=== PATIENT | male | born 1990 ===

== ENCOUNTER 2017-10-30 18:58 | Emergency (ER) | payer OTHER ==
[2017-10-30 19:18] VITALS: BP 128/63
--- NOTE | 2017-10-30 21:15 | RAD ---
Indication: Chest pain, shortness of breath. 2 views of the chest including dual energy PA views demonstrate no mediastinal shift. Heart is of normal size and configuration. Lung martinez appear clear. IMPRESSION: No active cardiopulmonary disease is noted.
--- NOTE | 2017-11-29 10:48 | UC ---
Shortness of Breath HPI - HPI Summary HPI Summary: Patient urgent care with chief complaint of right-sided chest pain hurts to cough, turn onto his right side, laugh, talk and move - History of Current Complaint Chief Complaint: UCRespiratory Stated Complaint: TROUBLE BREATHING Time Seen by Provider: 10/30/17 20:06 Hx Obtained From: Patient Onset/Duration: Sudden Onset Timing: Constant Current Severity: Mild Associated Signs & Symptoms: Positive: Chest Pain w/Cough, Chest Pain Unrelated to Cough - Allergy/Home Medications Allergies/Adverse Reactions: Allergies Allergy/AdvReac Type Severity Reaction Status Date / Time No Known Allergies Allergy Verified 10/30/17 22:21 PMH/Surg Hx/FS Hx/Imm Hx Previously Healthy: Yes - Surgical History Surgical History: Yes Surgery Procedure, Year, and Place: tonsils removed when child - Family History Known Family History: Positive: Blood Disorder - Social History Occupation: Student Lives: With Family Alcohol Use: Occasionally Substance Use Type: None Smoking Status (MU): Former Smoker Review of Systems Constitutional: Negative Skin: Negative Eyes: Negative ENT: Negative Respiratory: Shortness Of Breath, Cough Cardiovascular: Negative Gastrointestinal: Negative Genitourinary: Negative Motor: Negative Neurovascular: Negative Musculoskeletal: Negative Neurological: Negative Psychological: Negative Is Patient Immunocompromised?: No All Other Systems Reviewed And Are Negative: Yes Physical Exam Triage Information Reviewed: Yes Appearance: Well-Appearing, No Pain Distress, Well-Nourished Vital Signs: Initial Vital Signs Temp 98.9 F 10/30/17 19:10 Pulse 84 10/30/17 19:10 Resp 18 10/30/17 19:10 BP 128/63 10/30/17 19:10 Pulse Ox 98 10/30/17 19:10 Vital Signs Reviewed: Yes Eye Exam: Normal Eyes: Positive: Conjunctiva Clear ENT Exam: Normal ENT: Positive: Normal ENT inspection, Hearing grossly normal, Pharynx normal, Nasal congestion. Negative: Trismus, Muffled voice, Hoarse voice Dental Exam: Normal Neck exam: Normal Neck: Positive: Supple, Nontender, No Lymphadenopathy Respiratory Exam: Normal Respiratory: Positive: Chest non-tender, No respiratory distress, No accessory muscle use Cardiovascular Exam: Normal Cardiovascular: Positive: RRR, Pulses Normal, Brisk Capillary Refill Musculoskeletal Exam: Normal Musculoskeletal: Positive: Strength Intact, ROM Intact, No Edema Neurological Exam: Normal Neurological: Positive: Alert, Muscle Tone Normal Psychological Exam: Normal Skin Exam: Normal Shortness of Breath Dx - Course Course Of Treatment: Patient will be discharged from the urgent care to go to the hospital for further evaluation of chest pain and shortness of breath - Differential Dx/Diagnosis Provider Diagnoses: dyspnea Discharge - Sign-Out/Discharge Documenting (check all that apply): Discharge/Admit/Transfer - Discharge Plan Condition: Stable Disposition: HOME Discharge Disposition Comment: to [facility] for further evaluation Patient Education Materials: Dyspnea (ED) Referrals: Chon Woodward MD [Primary Care Provider] - Additional Instructions: We are discharging you to go to the emergency department for further evaluation of you pleurtic pain and SOB - Billing Disposition and Condition Condition: STABLE Disposition: Home
== END 2017-10-30 21:30 | disposition home or self-care (01) ==
LOC: UCEAST 18:58
DX: R06.00 Dyspnea, unspecified (principal); R07.89 Other chest pain; R05 Cough; Z83.2 Family history of diseases of the blood and blood-forming organs and certain disorders involving the immune mechanism; Z87.891 Personal history of nicotine dependence
CPT/HCPCS: 71046; 99202; G0463

== ENCOUNTER 2017-10-30 22:12 | Emergency (ER) | payer OTHER ==
[2017-10-30] MEDS ORDERED: Ibuprofen TAB* 800 MG PO ONE ×2 (22:31→22:34)
[2017-10-30 22:54] LABS: ABS Basophils 0.1 10^3/ul (0-0.2); ABS Eosinophils 0.5 10^3/ul (0-0.6); ABS Lymphocytes 3.1 10^3/ul (1.0-4.8); ABS Monocytes 0.8 10^3/ul (0-0.8); ABS Nucleated RBC 0 10^3/ul; Eosinophil % 4.5 % (0-6); Hematocrit 39 % (42-52); Hemoglobin 13.7 g/dl (14.0-18.0); Lymphocyte % 26.7 % (25-47); Mean Corpuscular HGB Conc 36 g/dl (31-36); Mean Corpuscular Hemoglobin 31 pg (27-31); Mean Corpuscular Volume 87 fL (80-94); Mean Platelet Volume 9.2 um3 (7.4-10.4); Nucleated Red Blood Cells % 0.2; Platelet Count 188 10^3/ul (150-450); Red Blood Count 4.45 10^6/ul (4.0-5.4); Red Cell Distribution Width 12 % (10.5-15); White Blood Count 11.6 10^3/ul (3.5-10.8)
[2017-10-30 23:11] LABS: EGFR Non-African American 95.1 (>60)
[2017-10-31 00:17] VITALS: BP 141/78
--- NOTE | 2017-10-31 00:22 | ED ---
Lucia James Jade, scribed for Rodrigue Kan MD on 10/30/17 at 2315 . HPI Chest Pain - HPI Summary HPI Summary: Pt is a 26 y/o male who presents to the ED referred by [facility] c/o right-sided CP. Pain began last night in the middle of the night, waking him up from sleep. He states the pain is on his right lateral side and radiates to his right shoulder, and is described as 6/10 in severity on triage. Pt states that lying down and breathing makes the pain worse. He also c/o SOB. He denies recent exercise. - History of Current Complaint Chief Complaint: EDChestWallPain Time Seen by Provider: 10/30/17 22:23 Hx Obtained From: Patient Onset/Duration: Started Days Ago - Last night, Still Present Timing: Constant Current Severity: Moderate Pain Intensity: 7 Pain Scale Used: 0-10 Numeric Chest Pain Location: Right Lateral Chest Pain Radiates: Yes Chest Pain Radiates To:: Shoulder - Right Aggravating Factor(s): Position - Lying down, Deep Breaths Alleviating Factor(s): Nothing Associated Signs and Symptoms: Positive: Shortness of Breath - Allergy/Home Medications Allergies/Adverse Reactions: Allergies Allergy/AdvReac Type Severity Reaction Status Date / Time No Known Allergies Allergy Verified 10/30/17 22:21 PMH/Surg Hx/FS Hx/Imm Hx Cardiovascular History: Denies: Hx Coronary Artery Disease, Hx Hypertension Respiratory History: Denies: Hx Asthma - Surgical History Surgery Procedure, Year, and Place: tonsils removed when child Infectious Disease History: No Infectious Disease History: Denies: Traveled Outside the [place] in Last 30 Days - Family History Known Family History: Negative: Cardiac Disease, Diabetes - Social History Alcohol Use: Rare Substance Use Type: Reports: None Smoking Status (MU): Former Smoker Review of Systems Positive: Chest Pain Positive: Shortness Of Breath All Other Systems Reviewed And Are Negative: Yes Physical Exam - Summary Physical Exam Summary: VITAL SIGNS: Reviewed. GENERAL: ~Patient is a well-developed and nourished male who is lying comfortable in the stretcher. Patient is not in any acute respiratory distress. HEAD AND FACE: No signs of trauma. No ecchymosis, hematomas or skull depressions. No sinus tenderness. EYES: PERRLA, EOMI x 2, No injected conjunctiva, no nystagmus. EARS: Hearing grossly intact. Ear canals and tympanic membranes are within normal limits. MOUTH: Oropharynx within normal limits. NECK: Supple, trachea is midline, no adenopathy, no JVD, no carotid bruit, no c- spine tenderness, neck with full ROM. CHEST: Symmetric, no tenderness at palpation LUNGS: Clear to auscultation bilaterally. No wheezing or crackles. CVS: Regular rate and rhythm, S1 and S2 present, no murmurs or gallops appreciated. ABDOMEN: Soft, non-tender. No signs of distention. No rebound no guarding, and no masses palpated. Bowel sounds are normal. EXTREMITIES: FROM in all major joints, no edema, no cyanosis or clubbing. NEURO: Alert and oriented x 3. No acute neurological deficits. Speech is normal and follows commands. SKIN: Dry and warm Triage Information Reviewed: Yes Vital Signs On Initial Exam: Initial Vitals Temp Pulse Resp BP Pulse Ox 97.9 F 64 18 124/71 99 10/30/17 22:19 10/30/17 22:19 10/30/17 22:19 10/30/17 22:19 10/30/17 22:19 Vital Signs Reviewed: Yes Diagnostics - Vital Signs Vital Signs Temp Pulse Resp BP Pulse Ox 10/30/17 22:19 97.9 F 64 18 124/71 99 - Laboratory Lab Results: Lab Results 10/30/17 Range/Units 22:42 WBC 11.6 H (3.5-10.8) 10^3/ul RBC 4.45 (4.0-5.4) 10^6/ul Hgb 13.7 L (14.0-18.0) g/dl Hct 39 L (42-52) % MCV 87 (80-94) fL MCH 31 (27-31) pg MCHC 36 (31-36) g/dl RDW 12 (10.5-15) % Plt Count 188 (150-450) 10^3/ul MPV 9.2 (7.4-10.4) um3 Neut % (Auto) 60.5 (38-83) % Lymph % (Auto) 26.7 (25-47) % [place] % (Auto) 7.2 H (0-7) % Eos % (Auto) 4.5 (0-6) % Baso % (Auto) 1.1 (0-2) % Absolute Neuts (auto) 7.0 (1.5-7.7) 10^3/ul Absolute Lymphs (auto) 3.1 (1.0-4.8) 10^3/ul Absolute Monos (auto) 0.8 (0-0.8) 10^3/ul Absolute Eos (auto) 0.5 (0-0.6) 10^3/ul Absolute Basos (auto) 0.1 (0-0.2) 10^3/ul Absolute Nucleated RBC 0 10^3/ul Nucleated RBC % 0.2 Result Diagrams: 10/30/17 22:42 10/30/17 22:42 Lab Statement: Any lab studies that have been ordered have been reviewed, and results considered in the medical decision making process. - EKG 22:18 Cardiac Rate: NL - 64 bpm EKG Rhythm: Sinus Rhythm EKG Interpretation: J point elevation. Normal axis. Normal interval. No ischemic changes. Chest Pain Course/Dx - Course Course Of Treatment: Pt is a 26 y/o male who presents to the ED referred by [facility] c/o moderate right lateral CP with radiation to the right shoulder, which began in middle of last night. Pt states that lying down and breathing makes the pain worse. He also c/o SOB. He denies recent exercise. An EKG reveals Normal rate and rhythm at 64 bpm, J point elevation, normal axis, normal interval, no ischemic changes. Blood work was done and includes a Troponin of 0.01. In the ED course, pt was given Ibuprofen. Patient will be discharged with Dx of chest wall pain. Pt is agreeable with this plan. - Diagnoses Provider Diagnoses: Chest wall pain Discharge - Sign-Out/Discharge Documenting (check all that apply): Discharge/Admit/Transfer - Discharge - Discharge Plan Condition: Stable Disposition: HOME Prescriptions: Ibuprofen TAB* [Motrin TAB* 800 MG] 800 mg PO ONCE PRN #30 tab PRN Reason: Pain Patient Education Materials: Chest Wall Pain (ED) Referrals: Chon Woodward MD [Primary Care Provider] - 3 Days Additional Instructions: RETURN TO EMERGENCY DEPARTMENT FOR ANY NEW OR WORSENING SYMPTOMS. The documentation as recorded by the Lucia jurado Jade accurately reflects the service I personally performed and the decisions made by Lucius figueroa Abdul, MD.
== END 2017-10-31 00:19 | disposition home or self-care (01) ==
LOC: ED 22:12
DX: R07.89 Other chest pain (principal); R06.02 Shortness of breath; Z87.891 Personal history of nicotine dependence
CPT/HCPCS: 36415; 80053; 82550; 83735; 84484; 85025; 85379; 93005; 99283; A9270-GY